=== PATIENT | female | born 1925 | race Caucasian/White ===

== ENCOUNTER 2016-10-22 23:02 | Emergency (ER) | payer MEDICARE, MEDICAID ==
[2016-10-22] MEDS ORDERED: LIDOCAINE 1% INJ-PF (10 MG/ML) 30 ML SDV INFIL ONE (23:43)
--- NOTE | 2016-10-23 00:59 | ER Document Report ---
ED Hand/Wrist Injury - General Chief Complaint: Finger Injury Stated Complaint: FALL/FINGER INJURY Mode of Arrival: Ambulatory Information source: Patient, Emergency Med Personnel, Outside Facility Records Cannot obtain history due to: Dementia Notes: 89-year-old female presents to the emergency department complaining of left fourth finger pain and deformity status post mechanical fall. Patient reports was walking when she tripped and fell. States she tried to catch herself during the fall with her left hand. Denies striking her losing consciousness, pain to head or neck, nausea or vomiting, chest pain or shortness of breath, or other pain to extremities. TRAVEL OUTSIDE OF THE [place] IN LAST 30 DAYS: No - HPI Injury to: Hand, Ring finger Onset: Just prior to arrival Where: Indoors, Custodial Timing: Still present Quality of pain: Achy Severity: Moderate Pain Level: 1 Context: Fall - Related Data Allergies/Adverse Reactions: codeine [Codeine] Allergy (Severe, Verified 05/01/16 15:42) "makes me feel high" Penicillins Allergy (Intermediate, Verified 05/01/16 15:42) rash acetaminophen [From Darvocet-N 100] Allergy (Unknown, Verified 05/03/16 19:12) phenytoin sodium [From Dilantin] Allergy (Unknown, Verified 05/01/16 15:42) phenytoin sodium extended [From Dilantin] Allergy (Unknown, Verified 05/01/16 15 :42) propoxyphene [Propoxyphene] Allergy (Unknown, Verified 05/01/16 15:42) propoxyphene HCl [From Darvon] Allergy (Unknown, Verified 05/01/16 15:42) propoxyphene napsylate [From Darvocet-N 100] Allergy (Unknown, Verified 15:42) tetracycline [Tetracycline] Allergy (Unknown, Verified 05/01/16 15:42) Sulfa (Sulfonamide Antibiotics) Adverse Reaction (Severe, Verified 05/01/16 15: 42) stomach ache Past Medical History - General Information source: Patient, Outside Facility Records - Social History Smoking Status: Never Smoker Chew tobacco use (# tins/day): No Frequency of alcohol use: None Drug Abuse: None Lives with: Family Family History: Reviewed & Not Pertinent - Past Medical History Cardiac Medical History: Reports: Hx Hypercholesterolemia, Hx Hypertension Neurological Medical History: Reports: Hx Seizures Endocrine Medical History: Reports: Hx Diabetes Mellitus Type 2 GI Medical History: Reports: Hx Gastroesophageal Reflux Disease, Hx Ulcer Psychiatric Medical History: Reports: Hx Depression Past Surgical History: Reports: Hx Appendectomy, Hx Hysterectomy. Denies: Hx Pacemaker - Immunizations Hx Diphtheria, Pertussis, Tetanus Vaccination: Yes Hx Pneumococcal Vaccination: 05/20/09 Review of Systems - Review of Systems Constitutional: No symptoms reported EENT: No symptoms reported Cardiovascular: No symptoms reported Respiratory: No symptoms reported Gastrointestinal: No symptoms reported Genitourinary: No symptoms reported Female Genitourinary: No symptoms reported Musculoskeletal: See HPI Skin: No symptoms reported Hematologic/Lymphatic: No symptoms reported Neurological/Psychological: No symptoms reported -: Yes All other systems reviewed and negative Physical Exam - Vital signs Vitals: Temp Pulse Resp BP Pulse Ox 98.1 F 62 18 152/82 H 98 10/23/16 01:10/23/16 01:10/23/16 01:10/23/16 01:10/23/16 01:17 - General General appearance: Appears well, Alert In distress: None - HEENT Head: Normocephalic, Atraumatic. No: Abrasions, Ferro's sign, Ecchymosis, Open wounds, [place]'s eyes, Tenderness, Other Eyes: Normal Eyelashes: Normal Pupils: PERRL Nerve palsy: No Visual alejo normal: Yes Ears: Normal External canal: Normal Tympanic membrane: Normal Sinus: Normal Nasal: Normal Mouth/Lips: Normal Mucous membranes: Normal, Moist Pharynx: Normal. No: Blood in hypopharynx, Erythema, Exudate, Peritonsillar abscess, Post nasal drainage, Retropharyngeal abscess, Tonsillar hypertrophy, Uvular edema, Potential airway comprom., Other Neck: Normal. No: Anterior cervical chain, Posterior cervical chain, Lymphadenopathy, Meningismus, Subcutaneous emphysema - Respiratory Respiratory status: No respiratory distress Chest status: Nontender Breath sounds: Normal Chest palpation: Normal - Cardiovascular Rhythm: Regular Heart sounds: Normal auscultation Murmur: No Pulses: Normal: Radial Normal capillary refill: Yes - Abdominal Inspection: Normal Distension: No distension Bowel sounds: Normal Tenderness: Nontender Organomegaly: No organomegaly - Back Back: Normal, Nontender - Extremities General upper extremity: Normal inspection, Nontender, Normal color, Normal ROM , Normal strength, Normal temperature. No: Edema General lower extremity: Normal inspection, Nontender, Normal color, Normal ROM , Normal strength, Normal temperature, Normal weight bearing. No: Edema, Raleigh' s sign Shoulder: Normal, Nontender Arm: Normal, Nontender Elbow: Normal, Nontender Forearm: Normal, Nontender Wrist: Normal, Nontender Hand: Tender - Patient has mild tenderness to palpation and obvious deformity of the distal fourth left finger appears to be dislocated PIP joint. Distal neurovascular function intact with immediate capillary refill and intact sensation., Deformity, Dislocation Hip: Normal, Nontender Thigh: Normal Knee: Normal, Nontender Calf: Normal, Nontender Ankle: Normal, Nontender Foot: Normal, Nontender - Neurological Neuro grossly intact: Yes Cognition: Normal Orientation: Disoriented to time Mega Coma Scale Eye Opening: Spontaneous [place] Coma Scale Verbal: Confused - At patient's baseline [place] Coma Scale Motor: Obeys Commands Mega Coma Scale Total: 14 Speech: Normal Cranial nerves: Normal Cerebellar coordination: Normal Motor strength normal: LUE, RUE, LLE, RLE 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 No suggestion of head injury or other musculoskeletal injury aside from left fourth finger dislocation. Left fourth finger PIP joint dislocation was successfully reduced and patient tolerated well without digital block. Neurovascular function remains intact and patient had intact active, passive, and against resistance range of motion of finger after dislocation reduction. Patient appears stable for discharge and agrees on care, follow-up, ED return precautions. - Vital Signs Vital signs: Temp Pulse Resp BP Pulse Ox 98.1 F 62 18 152/82 H 98 10/23/16 01:17 10/23/16 01:17 10/23/16 01:17 10/23/16 01:17 10/23/16 01:17 - Diagnostic Test Radiology reviewed: Image reviewed, Reports reviewed Procedures - Immobilization Left Finger 4th digit Time completed: 01:15 Pre-Proc Neuro Vasc Exam: Normal Immobilizer type: Finger protection - howard tape 4th to 3rd finger Performed by: Provider Post-Proc Neuro Vasc Exam: Normal Alignment checked and good: Yes - Joint Reduction/Fracture Care Left Finger 4th digit Time completed: 01:15 Pre-procedure NV exam: Yes Post-procedure NV exam: Yes Post-reduction x-ray: Joint reduced, No fracture seen Reduction attempts: 1 Complications: No Discharge - Discharge Clinical Impression: Finger dislocation Qualifiers: Encounter type: initial encounter Qualified Code(s): S63.259A - Unspecified dislocation of unspecified finger, initial encounter Condition: Stable Disposition: HOME, SELF-CARE Instructions: Howard Taping (fingers) ([facility]), Finger Dislocation ([facility]), Ice & Elevation ([facility]) Additional Instructions: Follow-up with your primary care provider this week. Return to the emergency department for any worsening symptoms or concerns.
[2016-10-23 01:18] VITALS: BP 152/82
== END 2016-10-23 01:40 | disposition home or self-care (01) ==
LOC: ER 23:02
PROC: 0RSXXZZ Reposition Left Finger Phalangeal Joint, External Approach (ICD-10-PCS; principal; 2016-10-22)
DX: S63.285A Dislocation of proximal interphalangeal joint of left ring finger, initial encounter (principal); W19.XXXA Unspecified fall, initial encounter; Y93.01 Activity, walking, marching and hiking; Y92.129 Unspecified place in nursing home as the place of occurrence of the external cause; I10 Essential (primary) hypertension; E11.9 Type 2 diabetes mellitus without complications; Z88.5 Allergy status to narcotic agent; Z88.0 Allergy status to penicillin; Z88.8 Allergy status to other drugs, medicaments and biological substances; Z88.1 Allergy status to other antibiotic agents
CPT/HCPCS: 99283

== ENCOUNTER 2016-11-30 02:00 | Emergency (ER) | payer MEDICARE, MEDICAID ==
--- NOTE | 2016-11-30 02:14 | ER Document Report ---
ED Fall - General Stated Complaint: FALL,HEAD INJURY Time Seen by Provider: 11/30/16 02:06 Notes: Patient is an 89-year-old female that comes emergency department for chief complaint of a fall, patient comes by EMS from [facility], patient states that when she was standing she felt like her left leg suddenly gave out and she fell forward, hitting her head on the ground. She did not pass out. She did not vomit. She reports she has pain in her for head where she hit her head, denies any other injuries. Patient states she has fallen 3 times in the past several weeks with the same cause and result. Patient is on aspirin, not on any other blood thinners. Patient states she's been feeling good otherwise, denies any fevers, dizziness, chest pain shortness of breath. TRAVEL OUTSIDE OF THE [place] IN LAST 30 DAYS: No - Related data Allergies/Adverse Reactions: codeine [Codeine] Allergy (Severe, Verified 05/01/16 15:42) "makes me feel high" Penicillins Allergy (Intermediate, Verified 05/01/16 15:42) rash acetaminophen [From Darvocet-N 100] Allergy (Unknown, Verified 05/03/16 19:12) phenytoin sodium [From Dilantin] Allergy (Unknown, Verified 05/01/16 15:42) phenytoin sodium extended [From Dilantin] Allergy (Unknown, Verified 05/01/16 15 :42) propoxyphene [Propoxyphene] Allergy (Unknown, Verified 05/01/16 15:42) propoxyphene HCl [From Darvon] Allergy (Unknown, Verified 05/01/16 15:42) propoxyphene napsylate [From Darvocet-N 100] Allergy (Unknown, Verified 15:42) tetracycline [Tetracycline] Allergy (Unknown, Verified 05/01/16 15:42) Sulfa (Sulfonamide Antibiotics) Adverse Reaction (Severe, Verified 05/01/16 15: 42) stomach ache Past Medical History - General Information source: Patient, Emergency Med Personnel - Social History Smoking Status: Never Smoker Frequency of alcohol use: None Lives with: Family Family History: Reviewed & Not Pertinent - Past Medical History Cardiac Medical History: Reports: Hx Hypercholesterolemia, Hx Hypertension Neurological Medical History: Reports: Hx Seizures Endocrine Medical History: Reports: Hx Diabetes Mellitus Type 2 GI Medical History: Reports: Hx Gastroesophageal Reflux Disease, Hx Ulcer Psychiatric Medical History: Reports: Hx Depression Past Surgical History: Reports: Hx Appendectomy, Hx Hysterectomy. Denies: Hx Pacemaker - Immunizations Hx Diphtheria, Pertussis, Tetanus Vaccination: Yes Hx Pneumococcal Vaccination: 05/20/09 Review of Systems - Review of Systems Constitutional: No symptoms reported EENT: No symptoms reported Cardiovascular: No symptoms reported Respiratory: No symptoms reported Gastrointestinal: No symptoms reported Genitourinary: No symptoms reported Female Genitourinary: No symptoms reported Musculoskeletal: See HPI Skin: No symptoms reported Hematologic/Lymphatic: No symptoms reported Neurological/Psychological: See HPI Physical Exam - Vital signs Vitals: Temp Pulse Resp BP Pulse Ox 97.7 F 69 18 180/77 H 99 11/30/16 04:18 11/30/16 04:18 11/30/16 04:18 11/30/16 04:18 11/30/16 04:18 Interpretation: Normal - General General appearance: Appears well, Alert In distress: None - Patient alert, conversational, well-appearing - HEENT Head: Normocephalic, Other - There is a small hematoma just above the left eyebrow with mild ecchymosis, there is also very mild ecchymosis over the left zygomatic area, no orbital swelling, normal eyelid exam, normal head exam otherwise Eyes: Normal Conjunctiva: Normal Extraocular movements intact: Yes Eyelashes: Normal Pupils: PERRL Ears: Normal External canal: Normal Tympanic membrane: Normal Sinus: Normal Nasal: Normal Mouth/Lips: Normal Mucous membranes: Normal Pharynx: Normal Neck: Normal - Respiratory Respiratory status: No respiratory distress Chest status: Nontender Breath sounds: Normal Chest palpation: Normal - Cardiovascular Rhythm: Regular Heart sounds: Normal auscultation Murmur: No - Abdominal Inspection: Normal Distension: No distension Bowel sounds: Normal Tenderness: Nontender Organomegaly: No organomegaly - Back Back: Normal, Nontender - No cervical, thoracic, lumbar tenderness, patient moves all extremities without difficulty, no saddle anesthesia, normal distal neurovascular exam - Extremities General upper extremity: Normal inspection, Nontender, Normal color, Normal ROM , Normal temperature General lower extremity: Normal inspection, Nontender, Normal color, Normal ROM , Normal temperature, Normal weight bearing. No: Raleigh's sign - Neurological Neuro grossly intact: Yes Cognition: Normal Orientation: AAOx4 [place] Coma Scale Eye Opening: Spontaneous Mega Coma Scale Verbal: Oriented Mega Coma Scale Motor: Obeys Commands Mega Coma Scale Total: 15 Speech: Normal Cranial nerves: Normal Cerebellar coordination: Normal Motor strength normal: LUE, RUE, LLE, RLE Sensory: Normal - Psychological Associated symptoms: Normal affect, Normal mood - Skin Skin Temperature: Warm Skin Moisture: Dry Skin Color: Normal Course - Re-evaluation Re-evalutation: Patient is alert, oriented, cooperates with a normal neurological exam, has contusion with small hematoma over the left lower forehead area, no open wounds needing repair. Patient is on aspirin, no other blood thinners. No other signs of injury. CAT scan of the head and neck with no acute abnormalities. Discussed head injury precautions which were provided for patient, patient admits that she is supposed to either be in a wheelchair or use a walker but sometimes she forgets and when she does she tends to fall. I recommended that she use either one of these every time she ambulates. Patient states agreement. - Vital Signs Vital signs: Temp Pulse Resp BP Pulse Ox 97.7 F 69 18 180/77 H 99 11/30/16 04:18 11/30/16 04:18 11/30/16 04:18 11/30/16 04:18 11/30/16 04:18 Discharge - Discharge Clinical Impression: Fall Qualifiers: Encounter type: initial encounter Qualified Code(s): W19.XXXA - Unspecified fall, initial encounter Traumatic hematoma of forehead Qualifiers: Encounter type: initial encounter Qualified Code(s): S00.83XA - Contusion of other part of head, initial encounter Condition: Stable Disposition: HOME-SNF (ED ONLY) Additional Instructions: Evaluation and imaging shows no fractures, hemorrhages, or other concerning abnormalities. Give Tylenol for pain, give ice if needed for swelling/hematoma of the forehead. Please follow head injury precautions listed below. I recommended using either a walker or wheelchair to get around to avoid falls. Return to the emergency department for any concerning symptoms. Head Injury Precautions At this point, there is no evidence that your head injury is serious. Observation is necessary, however. Take only clear liquids for the first few hours, unless told otherwise by the doctor. If no pain medication was prescribed, you may take acetaminophen according to the directions on the bottle. Do not take any medication that may alter your level of alertness (unless you've discussed it with the doctor first) . Limit activity for the first 24 hours. Bed rest is best. During the first 24 hours, check to see approximately every two to three hours that the patient is easily arousable, responds normally, and can perform common tasks such as walking without difficulty. Contact your doctor or go to the hospital if any of the following things occur: Persistent vomiting, difficulty in arousing the patient, worsening or continued headache, or failure to improve as expected. Head injuries can cause symptoms that persist for a few days or even a few weeks. Forms: Elevated Blood Pressure Referrals: ZOILA FINN MD [Primary Care Provider] - Follow up as needed
[2016-11-30 04:27] VITALS: BP 180/77
== END 2016-11-30 04:30 ==
LOC: ER 02:00
DX: S00.83XA Contusion of other part of head, initial encounter (principal); W19.XXXA Unspecified fall, initial encounter; Y92.129 Unspecified place in nursing home as the place of occurrence of the external cause; R11.10 Vomiting, unspecified; E11.9 Type 2 diabetes mellitus without complications; I10 Essential (primary) hypertension; Z79.82 Long term (current) use of aspirin; Z88.5 Allergy status to narcotic agent; Z88.0 Allergy status to penicillin; Z88.8 Allergy status to other drugs, medicaments and biological substances; Z88.1 Allergy status to other antibiotic agents
CPT/HCPCS: 70450; 72125; 99284

== ENCOUNTER 2016-12-08 22:39 | Emergency (ER) | payer MEDICARE, MEDICAID ==
--- NOTE | 2016-12-09 00:37 | ER Document Report ---
ED Fall - General Chief Complaint: Fall Injury Stated Complaint: FALL, HEAD INJURY Time Seen by Provider: 12/09/16 00:16 Notes: Patient is an 89 year old female that comes to the ED by EMS for chief complaint of fall. Patient states she tried to get up and walk without her walker, she states her left leg gave out and she fell forward and hit the ground. She reports soreness over the left upper forehead and over the left ribs. She is on aspirin, no other blood thinners. Patient was reportedly confused more than baseline, although she is oriented to self, events, and place. She denies N/V. TRAVEL OUTSIDE OF THE [place] IN LAST 30 DAYS: No - Related data Allergies/Adverse Reactions: codeine [Codeine] Allergy (Severe, Verified 05/01/16 15:42) "makes me feel high" Penicillins Allergy (Intermediate, Verified 05/01/16 15:42) rash phenytoin sodium [From Dilantin] Allergy (Unknown, Verified 05/01/16 15:42) phenytoin sodium extended [From Dilantin] Allergy (Unknown, Verified 05/01/16 15 :42) propoxyphene [Propoxyphene] Allergy (Unknown, Verified 05/01/16 15:42) propoxyphene HCl [From Darvon] Allergy (Unknown, Verified 05/01/16 15:42) propoxyphene napsylate [From Darvocet-N 100] Allergy (Unknown, Verified 15:42) tetracycline [Tetracycline] Allergy (Unknown, Verified 05/01/16 15:42) Sulfa (Sulfonamide Antibiotics) Adverse Reaction (Severe, Verified 05/01/16 15: 42) stomach ache Past Medical History - General Information source: Patient, Transfer Record - Social History Smoking Status: Never Smoker Chew tobacco use (# tins/day): No Frequency of alcohol use: None Drug Abuse: None Lives with: Care Home Family History: Reviewed & Not Pertinent Patient has suicidal ideation: No Patient has homicidal ideation: No - Past Medical History Cardiac Medical History: Reports: Hx Hypercholesterolemia, Hx Hypertension Neurological Medical History: Reports: Hx Seizures Endocrine Medical History: Reports: Hx Diabetes Mellitus Type 2 Renal/ Medical History: Denies: Hx Peritoneal Dialysis GI Medical History: Reports: Hx Gastroesophageal Reflux Disease, Hx Ulcer Psychiatric Medical History: Reports: Hx Depression Past Surgical History: Reports: Hx Appendectomy, Hx Hysterectomy. Denies: Hx Pacemaker - Immunizations Hx Diphtheria, Pertussis, Tetanus Vaccination: Yes Hx Pneumococcal Vaccination: 05/20/09 Review of Systems - Review of Systems Constitutional: No symptoms reported EENT: No symptoms reported Cardiovascular: No symptoms reported Respiratory: No symptoms reported Gastrointestinal: No symptoms reported Genitourinary: No symptoms reported Female Genitourinary: No symptoms reported Musculoskeletal: See HPI Skin: No symptoms reported Hematologic/Lymphatic: No symptoms reported Neurological/Psychological: See HPI Physical Exam - Vital signs Vitals: Temp Pulse Resp BP Pulse Ox 98.3 F 71 18 140/85 H 96 12/08/16 23:00 12/08/16 23:00 12/08/16 23:00 12/08/16 23:00 12/08/16 23:00 Interpretation: Normal - General General appearance: Appears well, Alert In distress: None - HEENT Head: Ecchymosis - There is ecchymosis and swelling including the left eyebrow and forehead, no open wounds, no other traumatic findings noted Eyes: Normal Conjunctiva: Normal Extraocular movements intact: Yes Eyelashes: Normal Pupils: PERRL Ears: Normal Pharynx: Normal Neck: Normal - Respiratory Respiratory status: No respiratory distress Chest status: Tender - Tenderness noted over the left lower ribs specifically at the midaxillary line, no overt traumatic findings, no swelling, no deformity , chest is nontender otherwise Breath sounds: Normal Chest palpation: Normal - Cardiovascular Rhythm: Regular. No: Tachycardia Heart sounds: Normal auscultation, S1 appreciated, S2 appreciated Murmur: No - Abdominal Inspection: Normal Distension: No distension Bowel sounds: Normal Tenderness: Nontender Organomegaly: No organomegaly - Back Back: Normal. No: Vertebra tenderness - No tenderness noted over the entire spine, no saddle anesthesia, moves extremities without difficulty, normal strength, normal distal neurovascular exam - Extremities General upper extremity: Normal inspection, Nontender, Normal color, Normal ROM , Normal temperature General lower extremity: Normal inspection, Nontender, Normal color, Normal ROM , Normal temperature, Normal weight bearing. No: Raleigh's sign - Neurological Neuro grossly intact: Yes Cognition: Normal Orientation: AAOx4 [place] Coma Scale Eye Opening: Spontaneous [place] Coma Scale Verbal: Oriented [place] Coma Scale Motor: Obeys Commands Mega Coma Scale Total: 15 Speech: Normal Motor strength normal: LUE, RUE, LLE, RLE Sensory: Normal - Psychological Associated symptoms: Normal affect, Normal mood - Skin Skin Temperature: Warm Skin Moisture: Dry Skin Color: Normal Course - Re-evaluation Re-evalutation: Patient oriented to events, place, self. Patient is cooperative, other than the contusion and hematoma on her forehead that she is well-appearing. Workup performed, no abnormalities noted acutely, on reevaluation patient remains unchanged. Patient will be discharged back to the senior care with return precautions. - Vital Signs Vital signs: Temp Pulse Resp BP Pulse Ox 97.6 F 60 16 151/63 H 97 12/09/16 06:37 12/09/16 06:37 12/09/16 06:37 12/09/16 06:37 12/09/16 06:37 Discharge - Discharge Clinical Impression: Side pain Fall Qualifiers: Encounter type: initial encounter Qualified Code(s): W19.XXXA - Unspecified fall, initial encounter Head injury Qualifiers: Encounter type: initial encounter Qualified Code(s): S09.90XA - Unspecified injury of head, initial encounter Traumatic hematoma of forehead Qualifiers: Encounter type: initial encounter Qualified Code(s): S00.83XA - Contusion of other part of head, initial encounter Condition: Stable Disposition: HOME, SELF-CARE Additional Instructions: No fractures, dislocations, internal bleeding, or other abnormalities are noted on workup. Apply ice to the area of hematoma on the left upper forehead, give Tylenol for pain, increase walking/falling precautions. Follow-up with primary care. Follow head injury precautions below, return for any concerning symptoms. Head Injury Precautions At this point, there is no evidence that your head injury is serious. Observation is necessary, however. Take only clear liquids for the first few hours, unless told otherwise by the doctor. If no pain medication was prescribed, you may take acetaminophen according to the directions on the bottle. Do not take any medication that may alter your level of alertness (unless you've discussed it with the doctor first) . Limit activity for the first 24 hours. Bed rest is best. During the first 24 hours, check to see approximately every two to three hours that the patient is easily arousable, responds normally, and can perform common tasks such as walking without difficulty. Contact your doctor or go to the hospital if any of the following things occur: Persistent vomiting, difficulty in arousing the patient, worsening or continued headache, or failure to improve as expected. Head injuries can cause symptoms that persist for a few days or even a few weeks.
[2016-12-09] MEDS ORDERED: ACETAMINOPHEN 325 MG TABLET PO ONE (01:14)
--- NOTE | 2016-12-09 01:43 | RADIOLOGY REPORT (SQ) ---
EXAM DESCRIPTION: CT HEAD WITHOUT COMPLETED DATE/TIME: 12/09/2016 12:51 am REASON FOR STUDY: fall, left sided frontal head injury COMPARISON: 12/09/2016.11.7.11 TECHNIQUE: Axial images acquired through the brain without intravenous contrast. Images reviewed wi th bone, brain and subdural windows. Images stored on PACS. All CT scanners at this facility use dose modulation, iterative reconstruction, and/or weight based d osing when appropriate to reduce radiation dose to as low as reasonably achievable (ALARA). [facility]: Dose Right [facility]: CareDose [facility]: Dose Right [facility]: Teradose 4D [facility]: [employer] RADIATION DOSE: 55.31 mGy. LIMITATIONS: None. FINDINGS: VENTRICLES: Normal size and contour. CEREBRUM: Moderate cerebral volume loss. Moderate heterogeneous diminished deep periventricular whit e matter density may indicate advanced microangiopathy or other white matter process ; no significant interval change. CEREBELLUM: No masses. No hemorrhage. No alteration of density. No evidence for acute infarction. EXTRAAXIAL SPACES: No fluid collections. No masses. Atherosclerosis. ORBITS AND GLOBE: No intra- or extraconal masses. Normal contour of globe without masses. CALVARIUM: No fracture. PARANASAL SINUSES: No fluid or mucosal thickening. SOFT TISSUES: Small to moderate left frontoparietal scalp swelling -hematoma. OTHER: No other significant finding. IMPRESSION: Scalp swelling. No acute intracranial findings. Severe atrophy and heterogeneous, nons pecific diminished periventricular white matter density without significant interval change. TECHNICAL DOCUMENTATION: JOB ID: [id number] Quality ID # [id number]: Final reports with documentation of one or more dose reduction techniques (e.g., Au tomated exposure control, adjustment of the mA and/or kV according to patient size, use of iterative reconstruction technique) 2010 [employer]- All Rights Reserved
--- NOTE | 2016-12-09 01:45 | RADIOLOGY REPORT (SQ) ---
EXAM DESCRIPTION: CT CERVICAL SPINE WITHOUT COMPLETED DATE/TIME: 12/09/2016 12:51 am REASON FOR STUDY: fall, left sided frontal head injury COMPARISON: 11.30.16 TECHNIQUE: Axial images acquired through the cervical spine without intravenous contrast. Images re viewed with lung, soft tissue and bone windows. Reconstructed coronal and sagittal MPR images review ed. Images stored on PACS. All CT scanners at this facility use dose modulation, iterative reconstruction, and/or weight based d osing when appropriate to reduce radiation dose to as low as reasonably achievable (ALARA). [facility]: Dose Right [facility]: CareDose [facility]: Dose Right [facility]: Teradose 4D [facility]: [employer] RADIATION DOSE: 11.12 mGy. LIMITATIONS: None. FINDINGS: ALIGNMENT: 0.2 cm C4 and C7 degenerative anterolisthesis. MINERALIZATION: Normal. VERTEBRAL BODIES: No fractures or dislocation. DISCS: Moderate disc desiccation between the C5 and C7 levels. FACETS, LATERAL MASSES, POSTERIOR ELEMENTS: Moderate spondylosis. HARDWARE: None in the spine. VISUALIZED RIBS: No fractures. LUNG APICES AND SOFT TISSUES: No significant or acute findings. OTHER: No other significant finding. IMPRESSION: No acute findings. TECHNICAL DOCUMENTATION: JOB ID: [id number] Quality ID # [id number]: Final reports with documentation of one or more dose reduction techniques (e.g., Au tomated exposure control, adjustment of the mA and/or kV according to patient size, use of iterative reconstruction technique) 2010 [employer]- All Rights Reserved
--- NOTE | 2016-12-09 01:49 | RADIOLOGY REPORT (SQ) ---
EXAM DESCRIPTION: RIBS LEFT W/PA CHEST COMPLETED DATE/TIME: 12/09/2016 12:58 am REASON FOR STUDY: fall, left lower rib pain COMPARISON: 05/01/2016. . TECHNIQUE: Frontal view of the chest and additional views of the left ribs acquired. NUMBER OF VIEWS: 3 LIMITATIONS: None. FINDINGS: FRONTAL CXR: No pneumothorax. No pleural effusion. Small left basilar/left lower lobar at electasis or scar ; improved aeration compared with prior radiographs, 05/01/2016. RIBS: No displaced rib fractures. No lytic or blastic bony lesions. OTHER: No other significant finding. IMPRESSION: NO PNEUMOTHORAX. NO DISPLACED RIB FRACTURES. No acute cardiopulmonary findings. COMMENT: SITE OF TRAUMA/COMPLAINT MARKED/STAMP COMPLETED: NO. TECHNICAL DOCUMENTATION: JOB ID: [id number] [employer]- All Rights Reserved
[2016-12-09 06:31] VITALS: BP 151/63
== END 2016-12-09 06:37 | disposition home or self-care (01) ==
LOC: ER 22:39
DX: R52 Pain, unspecified (principal); S09.90XA Unspecified injury of head, initial encounter; S00.83XA Contusion of other part of head, initial encounter; W19.XXXA Unspecified fall, initial encounter; R29.898 Other symptoms and signs involving the musculoskeletal system; R41.0 Disorientation, unspecified; Z79.82 Long term (current) use of aspirin
CPT/HCPCS: 99285; 71101; 70450; 72125; A9270; 85025